=== PATIENT | male | born 1990 | race Caucasian/White ===

== ENCOUNTER 2019-12-09 09:09 | Emergency (ER) | payer BC ==
--- OUTSIDE RECORDS SUMMARY | 2019-12-09 09:12 | XMS REPORT | Summary of Care ---
:1990 Author Organization [facility] Address [address] [place] [address] Care Team Providers Name Role Phone Pcp, Patient Does Not Have A Primary Care Provider +1-000-00 0-0000 Reason for Visit Reason Comments LAB Encounter Details Date Type Department Care Team Description 10/04/2019 Laboratory Only [facility] Family Karina Squires, EQUINE INTERN [address] [place] [id number] Suspected Covid-19 [facility] Echo Lab, Adc Fam Pob I Virus Infection [address] [place] [address] (Primary D x) [place] [address] Allergies Not on Filedocumented as of this encounter (statuses as of 10/04/2019) Medications Not on filedocumented as of this encounter (statuses as of 10/04/2019) Active Problems Not on filedocumented as of this encounter (statuses as of 10/04/2019) Social History Tobacco Use Types Packs/Day Years Used Date Never Assessed Sex Assigned at Date Recorded Not on file Job Start Date Occupation Industry Not on file Not on file Not on file Travel History Travel Start Travel End No recent travel history available. documented as of this encounter Last Filed Vital Signs Not on filedocumented in this encounter Plan of Treatment Name Type Priority Associated Diagnoses Date/Ti me COVID-19 (PCR MOLECULAR LAB Routine Suspected Covid-1 9 Virus 10/04/2019 9:07 AM CDT TESTING) Infection Name Type Priority Associated Diagnoses Order S chedule COVID-19 (PCR MOLECULAR LAB Routine Suspected Covid-1 9 Virus Expected: 10/04/2019, TESTING) Infection Expires: 2020 Health Maintenance Due Date Last Done Comments VARICELLA VACCINES (1 of 2 - 1989 2-dose childhood series) DTaP,Tdap,and Td Vaccines (1 - 1999 Tdap) Depression Screening 2000 INFLUENZA VACCINE (#1) 2019 PNEUMOCOCCAL 0-64 YEARS COMBINED Aged Out No longer eligible based on SERIES patient's age to complete this topic documented as of this encounter Results Not on filedocumented in this encounter Visit Diagnoses Diagnosis Suspected Covid-19 Virus Infection - Stefany vazquez documented in this encounter Additional Health Concerns Infection Onset Date Last Indicated Resolved Time COVID-19 Rule Out 10/04/2019 10/04/2019 documented as of this encounter Insurance Payer Benefit Plan Subscriber ID Effective Dates Phone Address Type / Group BCBS OF [facility] [id number] 2019-Jose A [phone] [address] PPO/POS [place] t 7 [id number] [place] [address] documented as of this encounter
--- OUTSIDE RECORDS SUMMARY | 2019-12-09 09:12 | XMS REPORT | Summary of Care ---
:1990 Author Organization [facility] Address [address] [place] [address] Care Team Providers Name Role Phone Pcp, Patient Does Not Have A Primary Care Provider +1-000-00 0-0000 Reason for Visit Reason Comments Results Encounter Details Date Type Department Care Team Description 10/05/2019 Telephone [facility] Family Medicine Elke Coon PA Results - [address] manzo [facility] [place] [address] [place] [address] [phone] Allergies Not on Filedocumented as of this encounter (statuses as of 10/05/2019) Medications Not on filedocumented as of this encounter (statuses as of 10/05/2019) Active Problems Not on filedocumented as of this encounter (statuses as of 10/05/2019) Social History Tobacco Use Types Packs/Day Years Used Date Never Assessed Sex Assigned at Date Recorded Not on file Job Start Date Occupation Industry Not on file Not on file Not on file Travel History Travel Start Travel End No recent travel history available. documented as of this encounter Last Filed Vital Signs Not on filedocumented in this encounter Plan of Treatment Health Maintenance Due Date Last Done Comments VARICELLA VACCINES (1 of 2 - 1989 2-dose childhood series) DTaP,Tdap,and Td Vaccines (1 - 1999 Tdap) Depression Screening 2000 INFLUENZA VACCINE (#1) 2019 PNEUMOCOCCAL 0-64 YEARS COMBINED Aged Out No longer eligible based on SERIES patient's age to complete this topic documented as of this encounter Results Not on filedocumented in this encounter Additional Health Concerns Infection Onset Date Last Indicated Resolved Time COVID-19 Rule Out 10/04/2019 10/04/2019 10/05/2019 8: 08 AM CDT documented as of this encounter Insurance Payer Benefit Plan Subscriber ID Effective Dates Phone Address Type / Group BCBS OF [facility] [id number] 2019-Jose A [phone] [address] PPO/POS [place] t [id number] [place] [address] documented as of this encounter
--- OUTSIDE RECORDS SUMMARY | 2019-12-09 09:12 | XMS REPORT | Continuity of Care Document ---
:1990 Author Organization [facility] t Address [address] [place] [address] Care Team Providers Name Role Phone Miles Sepulveda MD Attending Clinician Earnest Baltazar Attending Clinician Lab, Fam Pob I Attending Clinician Unavailable Problems This patient has no known problems. Allergies, Adverse Reactions, Alerts This patient has no known allergies or adverse reactions. Medications This patient has no known medications. Procedures This patient has no known procedures. Encounters Start End Encounter Admission Attending Care Care Encounter Source Date/Time Date/Time Type Type Clinicians Facility Department ID 2019-11-10 2019-11-10 Telephone NITESH Sepulveda [id number] 00:00:00 00:00:00 Ann Marie Leblanc [facility] [id number] [facility] [id number] 2019-10-05 2019-10-05 Telephone Gertrudis [facility] [id number] 00:00:00 00:00:00 Elke [facility] [id number] [place] [id number] Professio [phone] nal [address] 2019-10-04 2019-10-04 Laboratory Lab, [facility] [id number] 09:00:29 09:45:18 Only Fam Pob I Health [id number] [place] [id number] Professio [phone] [address]al [address] Results This patient has no known results.
--- OUTSIDE RECORDS SUMMARY | 2019-12-09 09:12 | XMS REPORT | Summary of Care ---
:1990 Author Organization [address] [address] Care Team Providers Name Role Phone Pcp, Patient Does Not Have A Primary Care Provider +1-000-00 0-0000 Reason for Visit Reason Comments Error Encounter Details Date Type Department Care Team Description 11/10/2019 Telephone [facility] Urology- Greg Sepulveda MD Error [address] [place] [address] [place] [address] [place] [address] Allergies Not on Filedocumented as of this encounter (statuses as of 11/10/2019) Medications Not on filedocumented as of this encounter (statuses as of 11/10/2019) Active Problems Not on filedocumented as of this encounter (statuses as of 11/10/2019) Social History Tobacco Use Types Packs/Day Years Used Date Never Assessed Sex Assigned at Date Recorded Not on file documented as of this encounter Last Filed Vital Signs Not on filedocumented in this encounter Plan of Treatment Not on filedocumented as of this encounter Results Not on filedocumented in this encounter Insurance Payer Benefit Plan Subscriber ID Effective Dates Phone Address Type / Group BCBS OF [facility] [id number] 2019-Jose A [phone] [address] PPO/POS [place] t [id number] [place] [address] documented as of this encounter
[2019-12-09 10:09] LABS: Absolute Lymphocytes (CBC) 0.9 K/uL (0.7-4.9); Basophils % 0.4 % (0-1.3); Lymphocytes % 4.5 % (15.3-44.8); MPV 8.5 fL (7.6-11.3)
[2019-12-09 10:28] LABS: Albumin 3.5 g/dL (3.4-5.0); Bilirubin Total 0.5 mg/dL (0.2-1.0); Potassium 3.8 mmol/L (3.5-5.1); Protein, Total 7.6 g/dL (6.4-8.2)
[2019-12-09] MEDS ORDERED: NA CHLORIDE 0.9% 1,000 ML ONE (10:57)
[2019-12-09] MEDS ORDERED: CLINDAMYCIN 900MG/D5W 900 MG/50 ML IVPB IV ONE (10:58)
[2019-12-09 11:51] LABS: Blood Morphology Comment NOT SEEN (NOT SEEN); Platelet Estimate ADEQ
--- NOTE | 2019-12-09 12:44 | RAD REPORT ---
EXAM DESCRIPTION: US - Extremity Venous Uni Ltd - 12/09/2019 12:20 pm CLINICAL HISTORY: PAIN COMPARISON: None. TECHNIQUE: Real-time sonographic evaluation of the left lower extremity deep venous system was perfo rmed. FINDINGS: Normal compressibility, flow augmentation, phasic flow and spontaneous flow are identified in the left lower extremity common femoral, superficial femoral, popliteal and posterior tibial vein s. No intraluminal filling defects seen. IMPRESSION: No DVT in the left lower extremity.
--- NOTE | 2019-12-09 13:14 | EDPHYS ---
Physician Documentation [facility] Name: Bob Blankenship Age: 29 yrs Sex: Male : 1990 Arrival Date: 12/09/2019 Time: 09:12 Bed 5 Private MD: ED Physician Jitendra Hinton HPI: 12/08 09:35 This 29 yrs old Male presents to ER via Wheelchair with complaints of Leg jmm Swelling. 09:35 The patient presents with pain, that is acute. Onset: The symptoms/episode jmm began/occurred today. Modifying factors: The symptoms are alleviated by nothing. the symptoms are aggravated by nothing. Associated signs and symptoms: Pertinent positives: calf tenderness, swelling, warmth, Pertinent negatives nausea, numbness, weakness. The patient has not experienced similar symptoms in the past. This is a 29 year old male with a history of htn that presents to the ED with complaints of left lower leg pain and swelling beginning today. Patient denies fever but states having chills. Patient states having multiple mosquito bites but otherwise denies any injury. Denies chest pain, denies shortness of breath. . Historical: - Allergies: 09:32 No Known Allergies; iw - Home Meds: 09:32 losartan 50 mg oral tab 1 tab once daily [Active]; iw - PMHx: 09:32 Hypertension; iw - PSHx: 09:32 Appendectomy; iw - Immunization history:: Adult Immunizations not up to date. - Social history:: Smoking status: Patient reports the use of cigarette tobacco products, smokes one-half pack cigarettes per day. ROS: 09:35 Cardiovascular: Negative for chest pain, palpitations, and edema, Respiratory: Negative jmm for shortness of breath, cough, wheezing, and pleuritic chest pain, Abdomen/GI: Negative for abdominal pain, nausea, vomiting, diarrhea, and constipation. 09:35 Constitutional: Positive for chills. 09:35 MS/extremity: Positive for pain, swelling. 09:35 All other systems are negative. Exam: 09:35 Constitutional: This is a well developed, well nourished patient who is awake, alert, jmm and in no acute distress. Head/Face: atraumatic. Eyes: EOMI, no conjunctival erythema appreciated ENT: Moist Mucus Membranes Neck: Trachea midline, Supple Chest/axilla: Normal chest wall appearance and motion. Cardiovascular: Regular rate and rhythm. No edema appreciated Respiratory: Normal respirations, no respiratory distress appreciated Abdomen/GI: Non distended, soft Back: Normal ROM 09:35 Musculoskeletal/extremity: FROM appreciated to the left lower leg, compartments are soft, full radial pulse, NVI. 09:35 Skin: erythema and swelling noted to the left lower leg. 09:35 Neuro: Orientation: is normal, Mentation: is normal, Memory: is normal. 09:35 Psych: Behavior/mood is pleasant, cooperative, anxious. Vital Signs: 09:34 Weight 158.76 kg; Height 5 ft. 9 in. (175.26 cm); Pain 7/10; iw 09:51 BP 128 / 82; Pulse 113; Resp 20; Temp 99.9(O); Pulse Ox 95% on R/A; mh5 10:53 Pulse 107; Resp 20; Pulse Ox 96% on R/A; em 11:46 BP 153 / 78; Pulse 110; Resp 18; Temp 99.2(O); Pulse Ox 97% on R/A; mh5 13:00 BP 148 / 81; Pulse 107; Resp 20; Pulse Ox 99% on R/A; em 09:34 Body Mass Index 51.69 (158.76 kg, 175.26 cm) iw MDM: 09:26 Patient medically screened. maynor 13:10 Data reviewed: vital signs, nurses notes. Counseling: I had a detailed discussion with esther the patient and/or guardian regarding: the historical points, exam findings, and any diagnostic results supporting the discharge/admit diagnosis, radiology results, the need for outpatient follow up, to return to the emergency department if symptoms worsen or persist or if there are any questions or concerns that arise at home. ED course: Patient is alert and non toxic in appearance in the ED. Patient declines admission. Will be prescribed oral abx and otherwise given strict return precautions. Patient understood and agrees with the plan of care. . 12/08 09:30 Order name: CBC with Diff; Complete Time: 12:42 [facility] 12/08 09:30 Order name: CMP; Complete Time: 10:33 [facility] 12/08 09:30 Order name: Procalcitonin; Complete Time: 11:09 [facility] 12/08 09:30 Order name: Lactate; Complete Time: 10:33 [facility] 12/08 09:30 Order name: Blood Culture Adult (2) [facility] 12/08 09:30 Order name: Saline Lock; Complete Time: 10:08 [facility] 12/08 09:30 Order name: US Extremity Venous Unilateral Ltd; Complete Time: 12:45 [facility] 12/08 11:51 Order name: Manual Differential; Complete Time: 12:42 [facility] 12/08 13:03 Order name: Lactate Sepsis 2 HR Follow-up; Complete Time: 13:05 EDAZ Administered Medications: 10:50 Drug: Clindamycin 900 mg Route: IVPB; Infused Over: 30 mins; Site: left antecubital; em 11:30 Follow up: Response: No adverse reaction; IV Status: Completed infusion; IV Intake: em 100ml 10:50 Drug: NS 0.9% 1000 ml Route: IV; Rate: 1 bolus; Site: left antecubital; em 12:30 Follow up: IV Status: Completed infusion; IV Intake: 1000ml em Disposition: 12/09 06:04 Co-signature as Attending Physician, Jitendra Hinton MD I agree with the assessment and maynor plan of care. Disposition: 12/09/19 13:13 Discharged to Home. Impression: Cellulitis of the Right Lower Extremity. - Condition is Stable. - Discharge Instructions: Cellulitis, Adult. - Prescriptions for Clindamycin HCl 300 mg Oral Capsule - take 1 capsule by ORAL route every 6 hours for 10 days; 40 capsule. Bactrim DS 800- 160 mg Oral Tablet - take 1 tablet by ORAL route every 12 hours for 10 days; 20 tablet. - Medication Reconciliation Form, Thank You Letter, Antibiotic Education, Prescription Opioid Use, Work release form form. - Follow up: Private Physician; When: 2 - 3 days; Reason: Recheck today's complaints, Continuance of care, Re-evaluation by your physician. Signatures: Dispatcher [employer] Jitendra Nieto MD MD cha Mickail, Joel, PA PA Lalo Krause, JOHN RN Nallely Dickson RN RN iw Corrections: (The following items were deleted from the chart) 12/08 11:51 10:16 CBC Smear Scan ordered. EDAZ EDAZ 12:40 11:38 LACTATE+C.LAB.BRZ ordered. EDAZ EDAZ 13:25 13:13 12/09/2019 13:13 Discharged to Home. Impression: Cellulitis of the Right Lower em Extremity. Condition is Stable. Forms are Medication Reconciliation Form, Thank You Letter, Antibiotic Education, Prescription Opioid Use. Follow up: Private Physician; When: 2 - 3 days; Reason: Recheck today's complaints, Continuance of care, Re-evaluation by your physician. esther
--- NOTE | 2019-12-09 13:14 | ER ---
Nurse's Notes [facility] Name: Bob Blankenship Age: 29 yrs Sex: Male : 1990 Arrival Date: 12/09/2019 Time: 09:12 Bed 5 Private MD: Diagnosis: Cellulitis of the Right Lower Extremity Presentation: 12/08 09:28 Chief complaint: Patient states: swelling, redness, pain to left leg started last iw night. Coronavirus screen: At this time, the client does not indicate any symptoms associated with coronavirus-19. Ebola Screen: Patient negative for fever greater than or equal to 101.5 degrees Fahrenheit, and additional compatible Ebola Virus Disease symptoms Patient denies exposure to infectious person. Patient denies travel to an Ebola-affected area in the 21 days before illness onset. No symptoms or risks identified at this time. Initial Sepsis Screen: Does the patient meet any 2 criteria? No. Patient's initial sepsis screen is negative. Does the patient have a suspected source of infection? No. Patient's initial sepsis screen is negative. Risk Assessment: Do you want to hurt yourself or someone else? Patient reports no desire to harm self or others. Onset of symptoms was December 08, 2019. 09:28 Method Of Arrival: Wheelchair iw 09:28 Acuity: ZHAO 3 iw Historical: - Allergies: 09:32 No Known Allergies; iw - Home Meds: 09:32 losartan 50 mg oral tab 1 tab once daily [Active]; iw - PMHx: 09:32 Hypertension; iw - PSHx: 09:32 Appendectomy; iw - Immunization history:: Adult Immunizations not up to date. - Social history:: Smoking status: Patient reports the use of cigarette tobacco products, smokes one-half pack cigarettes per day. Screenin:57 Abuse screen: Denies threats or abuse. Nutritional screening: No deficits noted. em Tuberculosis screening: No symptoms or risk factors identified. Fall Risk None identified. Assessment: 09:45 General: Appears in no apparent distress. comfortable, Behavior is calm, cooperative, em appropriate for age, Denies fever. Pain: Complains of pain in left calf Pain currently is 7 out of 10 on a pain scale. Neuro: Level of Consciousness is awake, alert, obeys commands, Oriented to person, place, time, situation, Appropriate for age. Cardiovascular: Capillary refill < 3 seconds Patient's skin is warm and dry. Respiratory: Airway is patent Respiratory effort is even, unlabored, Respiratory pattern is regular, symmetrical. GI: Abdomen is round obese. Derm: Skin is intact, is healthy with good turgor, hot and red to touch, mild swelling noted on left calf Skin is. 11:00 Reassessment: Patient appears in no apparent distress at this time. Patient and/or em family updated on plan of care and expected duration. Pain level reassessed. Patient is alert, oriented x 3, equal unlabored respirations, skin warm/dry/pink. 11:40 Reassessment: Patient is alert/active/playful, equal unlabored respirations, skin em warm/dry/pink. pending completion of IV NS bolus before redrawing the lactate. 13:24 Reassessment: Patient appears in no apparent distress at this time. Patient and/or em family updated on plan of care and expected duration. Pain level reassessed. Patient is alert, oriented x 3, equal unlabored respirations, skin warm/dry/pink. Vital Signs: 09:34 Weight 158.76 kg; Height 5 ft. 9 in. (175.26 cm); Pain 7/10; iw 09:51 BP 128 / 82; Pulse 113; Resp 20; Temp 99.9(O); Pulse Ox 95% on R/A; mh5 10:53 Pulse 107; Resp 20; Pulse Ox 96% on R/A; em 11:46 BP 153 / 78; Pulse 110; Resp 18; Temp 99.2(O); Pulse Ox 97% on R/A; mh5 13:00 BP 148 / 81; Pulse 107; Resp 20; Pulse Ox 99% on R/A; em 09:34 Body Mass Index 51.69 (158.76 kg, 175.26 cm) iw ED Course: 09:12 Patient arrived in ED. as 09:12 Martínez Phoenix PA is PHCP. jmm 09:12 Jitendra Hinton MD is Attending Physician. jmm 09:29 Triage completed. iw 09:30 Lalo Christy, RN is Primary Nurse. em 09:32 Arm band placed on. iw 09:52 Patient has correct armband on for positive identification. Bed in low position. Call 5 light in reach. Side rails up X 1. Pulse ox on. NIBP on. 09:57 Initial lab(s) drawn, by me, sent to lab. First set of blood cultures drawn by me. em Inserted saline lock: 20 gauge in left antecubital area, using aseptic technique. Blood collected. 10:26 US Extremity Venous Unilateral Ltd In Process Unspecified. EDMS 10:28 Ultrasound completed. Patient tolerated well. Notified STOCK PREPARER/PA martínez. sg3 13:18 IV discontinued, Pressure dressing applied. 5 13:23 No provider procedures requiring assistance completed. em 13:24 intact, bleeding controlled, No redness/swelling at site. Pressure dressing applied. em Administered Medications: 10:50 Drug: Clindamycin 900 mg Route: IVPB; Infused Over: 30 mins; Site: left antecubital; em 11:30 Follow up: Response: No adverse reaction; IV Status: Completed infusion; IV Intake: em 100ml 10:50 Drug: NS 0.9% 1000 ml Route: IV; Rate: 1 bolus; Site: left antecubital; em 12:30 Follow up: IV Status: Completed infusion; IV Intake: 1000ml em Intake: 11:30 IV: 100ml; Total: 100ml. em 12:30 IV: 1000ml; Total: 1100ml. em Outcome: 13:13 Discharge ordered by MD. [facility] 13:23 Discharged to home ambulatory. em 13:23 Condition: good 13:23 Discharge instructions given to patient, Instructed on discharge instructions, follow up and referral plans. medication usage, Demonstrated understanding of instructions, follow-up care, medications, Prescriptions given X 2. 13:25 Patient left the ED. em Signatures: Dispatcher [employer] EDMS Martínez Phoenix PA PA jmm Munoz, Edgar, RN RN Mary Pink Irene, RN Sandy Vela [facility] Chelsi Hoff sg3
[2019-12-09 13:35] VITALS: TEMP 99.2
[2019-12-09 13:36] VITALS: BP 148/81; O2SAT 99
== END 2019-12-09 13:25 | disposition home or self-care (01) ==
LOC: ER 09:09
DX: L03.116 Cellulitis of left lower limb (principal); I10 Essential (primary) hypertension; F17.210 Nicotine dependence, cigarettes, uncomplicated
CPT/HCPCS: 96365; 96361; 87040 ×2; 85025; 36415; 83605 ×2; 80053; 84145; 93971; 99284; J7030

== ENCOUNTER 2021-07-28 09:30 | Day surgery (SDC) | payer OTHER ==
--- NOTE | 2021-07-24 11:26 | RAD REPORT ---
EXAM DESCRIPTION: RAD - Chest Pa And Lat (2 Views) - 07/24/2021 11:20 am CLINICAL HISTORY: Pre op pending hernia surgery COMPARISON: No comparisons FINDINGS: Lines: None. Lungs: No evidence of edema or pneumonia. Pleural: No significant pleural effusions or pneumothorax. Cardiac: The heart size is within normal limits. Bones: No acute fractures. Other: IMPRESSION: No acute cardiopulmonary disease.
[2021-07-24 11:45] LABS: Absolute Lymphocytes (CBC) 2.1 K/uL (0.7-4.9); Hematocrit 45.7 % (39.6-49.0); Lymphocytes % 18.7 % (15.3-44.8); MPV 8.4 fL (7.6-11.3); RBC Red Blood Cell Count 5.01 M/uL (4.33-5.43)
--- NOTE | 2021-07-24 14:32 | EKG ---
Test Date: 2021-07-24 Test Time: 10:01:17 [employer] Machine: MICKY MEASUREMENT RESULTS: Intervals: Rate: 89 NJ: 160 QRSD: 86 QT: 348 QTc: 423 [place]: P: 64 NJ: 160 QRS: 74 T: 75 INTERPRETIVE STATEMENTS: Normal sinus rhythm Normal ECG No previous ECG available for comparison Electronically Signed On 07-24-21 14:32:06 CDT by Rocky Wharton
[2021-07-28] MEDS ORDERED: Ringers Lactate 1,000 ML IV ONE (09:39)
[2021-07-28] MEDS ORDERED: BUPIVACAINE 0.25% PF 10 ML VIAL ONE (09:52)
[2021-07-28] MEDS ORDERED: ROCURONIUM 50 MG/5 ML VIAL IV ONE (09:57)
[2021-07-28] MEDS ORDERED: ONDANSETRON 4 MG/2 ML VIAL ONE ×2 (09:57→12:02)
[2021-07-28] MEDS ORDERED: FENTANYL CITR 100 MCG/2 ML ONE (09:57)
[2021-07-28] MEDS ORDERED: MIDAZOLAM HCL 2 MG/2 ML INJ ONE (09:57)
[2021-07-28] MEDS ORDERED: propofoL 200 MG/20 ML VIAL IV ONE (09:57)
[2021-07-28] MEDS ORDERED: LIDOCAINE 2% MPF 5 ML VIAL ONE (09:57)
[2021-07-28] MEDS ORDERED: CEFAZOLIN/SWI 2gm 2 GM/20 ML SYR ONE (10:03)
[2021-07-28 10:14] LABS: Potassium 4.1 mmol/L (3.5-5.1)
[2021-07-28] MEDS ORDERED: GLYCOPYRROLATE 0.2 MG/ML SYR ONE (11:30)
--- NOTE | 2021-07-28 11:31 | P.OP ---
Preoperative diagnosis: Ventral Abdominal Reducible Hernia Postoperative diagnosis: Ventral Abdominal Reducible Hernia Primary procedure: Laparoscopic Ventral Hernia Repair with mesh Anesthesia: GETA + Local Estimated blood loss: <5cc Specimen: Pre-peritoneal adipose Findings: reducible ventral hernia defect, no contents Complications: None Implants: Bard Ventralite ST mech with echo 15cm round, sorbafix Transferred to: Recovery Room Condition: Good
[2021-07-28] MEDS ORDERED: dexAMETHasone 10 MG/ML VIAL ONE (11:36)
[2021-07-28] MEDS ORDERED: NEOSTIGMINE 1 MG/ML -10 ML VIAL ONE (11:36)
[2021-07-28] MEDS ORDERED: KETOROLAC 30 MG/ML INJ ONE (11:36)
[2021-07-28] MEDS: HYDROMORPHONE HCL 1 MG/ML INJ ONE ×4 (12:00→12:25)
[2021-07-28] MEDS ORDERED: HYDROCODONE/APAP 10/325 TAB ONE (13:12)
[2021-07-28 13:54] VITALS: BP 134/96; TEMP 97.8; O2SAT 95
--- NOTE | 2021-07-28 23:31 | OP ---
Date of Procedure: 07/28/2021 Surgeon: Ye Hernandez MD, Brief History Of Present Illness: The patient is a 31-year-old gentleman who presented to the clinic with a reducible ventral abdominal midline hernia. He had been seen in clinic with a significant bu lge in his midline. He had significant improvement of his symptoms after gentle palpation reduction in the office, but CT scan was performed, which did not display significant changes in the abdominal wall, but clinical exam necessitated a surgical intervention as there was significant bulging not con sistent with diastasis, but rather with a reducible ventral abdominal wall defect. Preoperative Diagnosis: Ventral abdominal reducible hernia. Postoperative Diagnosis: Ventral abdominal reducible hernia. Procedure Performed: Laparoscopic ventral hernia repair with mesh. Anesthesia: General endotracheal plus local with 0.25% Marcaine. Estimated Blood Loss: Less than 5 cc. Specimen: Preperitoneal adipose tissue. Findings: Reducible ventral hernia defect. No contents were appreciated. Complications: None. Implants: Bard Ventralight ST mesh with Echo positioning system 15.2 cm round and SorbaFix absorbabl e tacking system, 60 tacks used. Disposition: The patient was transferred to recovery room in good condition. Procedure In Detail: After informed consent was obtained, the patient was brought to the operating r oom and prepped and draped in the usual sterile fashion. After adequate anesthesia was achieved, the area of the left upper quadrant was anesthetized with 0.25% Marcaine and sharply incised. A 5 mm tr ocar was placed under direct visualization without any complication. Insufflation was obtained to 15 mmHg. At this time, no injury to vital structures upon entry into the abdomen. Additional trocar w as placed in the left lower quadrant. This area was similarly anesthetized and sharply incised. A 1 2-mm trocar was placed under direct visualization without complication. Inspection of the abdominal wall noted a defect in the anterior abdominal wall, which is only evident on pneumoperitoneum. When the pneumoperitoneum was reduced, the defect came together, but it was visualized, did not have herni a contents at this point though. It was a small defect approximately 1.5 cm and there was a small di astasis extending superiorly. At this point, I swept free the preperitoneal fat using LigaSure devic e and removed this to allow for appropriate landing zone from the mesh at this point in the supraumbi lical position. I then removed the preperitoneal fat, placed in EndoCatch bag, removed from the left lower quadrant trocar, and sent off for pathologic examination. I then sized the mesh, found a 15.[address] mesh with Echo positioning system to be adequate. It was placed, positioned centrally over the supraumbilical ventral abdominal wall hernia. After it was positioned, the ballo on was deployed and the single crown was secured to the anterior abdominal wall using SorbaFix absorb able fixation tacks. At this point, the balloon deployment system was removed and found to be intact on the back table and a second crown of SorbaFix with all fixation tacks were placed to the anterior abdominal wall with good apposition of the mesh to the anterior abdominal wall after 60 tacks were p laced. The patient was positioned back in neutral position under desufflation. The area was inspect ed and under insufflation was inspected, found to be in good apposition. At this point, I closed the 12 mm laparoscopic port in the left lower quadrant using a Lamine-Jocelin suture passer with 0 Vicr yl in interrupted fashion with good approximation of the tissues. The abdomen was completely desuffl ated under direct vision without evidence of complication. Remaining trocars were removed. All skin incisions were then copiously irrigated and closed with 4-0 Monocryl in a running fashion. Dermabon d was placed over top. The patient tolerated the procedure well without evidence of complication and transferred to PACU in good condition. All counts were correct at the end of the case. GABRIEL/BRANDON Voice ID: [id number] Report ID: [id number]
== END 2021-07-28 13:42 | disposition home or self-care (01) ==
LOC: OR 09:30
PROVIDERS: ATTEND Surgery
PROC: 0WUF4JZ Supplement Abdominal Wall with Synthetic Substitute, Percutaneous Endoscopic Approach (ICD-10-PCS; principal; 2021-07-28 11:30)
DX: K43.9 Ventral hernia without obstruction or gangrene (principal); Z20.822 Contact with and (suspected) exposure to COVID-19
CPT/HCPCS: 93005; 85025; 80048; 36415 ×2; 88302; 71046; 49652; U0003; J2704; J2710; J2250; J3010; J1100; J1170 ×2; J0690; J7120; J2405 ×2

== ENCOUNTER 2024-04-04 16:56 | Emergency (ER) | payer OTHER ==
--- OUTSIDE RECORDS SUMMARY | 2024-04-04 16:59 | XMS REPORT | Continuity of Care Document ---
Author Name Unknown Address [address] [facility]. [address] [id number] [facility] Address [address] [facility] [address] [place] [address] Care Team Providers [employer] Accounts Manager Name Role Phone PCP, PATIENT DOES NOT HAVE A Primary Care Physic neeru Unavailable BOB RUSSO Attending Clinician Unavailable BOB RUSSO Attending Clinician Unavailable Room, [facility] Attending Clinician Unavailable Ortega Nelson MD Attending Clinician [phone] ORTEGA NELSON Attending Clinician Unavailable SYLVIA Attending Clinician Unavailable Lab, [facility] I Attending Clinician Unavailab Sahara Mckeon Attending Clinician [phone] Ann Marie Sepulveda MD Attending Clinician [phone] Elke Baltazar Attending Clinician [phone] Hien Rosen Attending Clinician [phone] HIEN BERMAN Attending Clinician Unavailable Bob Russo MD Admitting Clinician [phone] BOB RUSSO Admitting Clinician Unavailable SYLVIA Admitting Clinician Unavailable Payers Payer Name Policy Type Policy Number Effective Date Expirati on Date Source [facility] [id number] 2023 00:00:00 [place] [id number] 2019 00:00:00 Allergies, Adverse Reactions, Alerts Allergy Name Allergy Type Status Severity Reaction(s) Onset Date Inactive Date Treating Clinician Comments Source NO KNOWN ALLERGIE S Drug Class Active [facility] Social History Social Habit Start Date Stop Date Quantity Comments Source Exposure to SARS-CoV-2 (event) Yes [facility] Sexual orientation [facility] History of Social function 2023-08-22 00:00:00 2023-08-22 00:00:00 [facility] Sex assigned at 1990 00:00:00 1990 00:00:00 [facility] Smoking Status Start Date Stop Date Source Tobacco smoking consumption unknown [facility] Medications Ordered Medication Name Filled Medication Name Start Date Stop Date Current Medication? Ordering Clinician Indication Dosage Frequency Signature (SIG) Comments Components Source sulfamethox azole-trime thoprim (BACTRIM DS) 800-160 mg per tablet 08-24 00:00: 00 08-30 04:59 :00 No [id number] 1{tbl} Take 1 tablet by mouth in the morning and 1 tablet in the evening. Do all this for 5 days. [facility] sulfamethox azole-trime thoprim (BACTRIM DS) 800-160 mg per tablet 08-21 00:00: 00 08-24 18:08 :55 No [id number] 1{tbl} Take 1 tablet by mouth in the morning and 1 tablet in the evening. Do all this for 5 days. [facility] Vital Signs Vital Name Observation Time Observation Value Comments S yovanny Systolic blood pressure 2023-08-25 17:36:00 129 mm[Hg] [facility] Diastolic blood pressure 2023-08-25 17:36:00 80 mm[Hg] [facility] Heart rate 2023-08-25 17:36:00 87 /min [facility] Body temperature 2023-08-25 17:36:00 36.11 Candy [facility] Respiratory rate 2023-08-25 17:36:00 14 /min [facility] Body weight 2023-08-25 17:36:00 130.636 kg [facility] Oxygen saturation in Arterial blood by Pulse oximetry 2023-08-25 17:36:00 97 /min [facility] Systolic blood pressure 2023-08-22 19:20:00 134 mm[Hg] [facility] Diastolic blood pressure 2023-08-22 19:20:00 91 mm[Hg] [facility] Heart rate 2023-08-22 19:20:00 102 /min [facility] Body temperature 2023-08-22 19:20:00 36.72 Candy [facility] Respiratory rate 2023-08-22 19:20:00 22 /min [facility] Body weight 2023-08-22 19:20:00 129.729 kg [facility] Oxygen saturation in Arterial blood by Pulse oximetry 2023-08-22 19:20:00 98 /min [facility] Procedures Procedure Date / Time Performed Performing Clinician Source REFERRAL OCCUPATIONAL THERAPY 2023-08-22 00:00:00 Toño Johnson [facility] Encounters Start Date/Time End Date/Time Encounter Type Admission Type Attending Clinicians Care Facility Care Department Encounter ID Source 2023-08-25 12:12:11 2023-08-25 23:59:00 Outpatient BOB DICKSON STEVEN [facility] [id number] [facility] 2023-08-25 12:12:11 2023-08-25 23:59:00 Hospital Encounter [facility] [id number] 350.1.13.10 4.2.7.2.686 [id number] [facility] 2023-08-22 14:07:34 2023-08-22 23:59:00 Hospital Encounter [facility] [id number] 350.1.13.10 4.2.7.2.686 [id number] [facility] 2023-08-22 10:39:00 2023-08-22 14:06:00 Outpatient BOB DICSKON [facility] [id number] [facility] 2023-08-22 10:39:00 2023-08-22 14:06:00 Hospital Encounter [facility] [id number] 350.1.13.10 4.2.7.2.686 [id number] [facility] 2023-08-22 12:00:00 2023-08-22 13:00:00 Ancillary Visit Room, Lissa-Occup Therapy Tub NelsonAlvaroOrtega Earnest [facility] 1..840.114 350.1.13.10 4.2.7.2.686 [id number] [facility] 2023-08-22 12:00:00 2023-08-22 12:00:00 Outpatient R ORTEGA NELSON [facility] [id number] [facility] 2020-03-27 11:26:00 2020-03-27 11:26:00 Outpatient [facility] [id number] 2020-03-18 17:47:47 2020-03-18 18:07:47 Laboratory Only Lab, Adc Fam Sahara Burnett [facility] 1..840.114 350.1.13.10 4.2.7.2.686 [id number] [facility] 2020-03-18 17:40:00 2020-03-18 17:40:00 Outpatient R [facility] [id number] [facility] 2019-11-10 00:00:00 2019-11-10 00:00:00 Telephone Ann Marie Sepulveda [facility] 1.840.114 350.1.13.10 4.2.7.2.686 [id number] [facility] 2019-11-10 00:00:00 2019-11-10 00:00:00 Telephone Ann Marie Sepulveda [facility] 1.840.114 350.1.13.10 4.2.7.2.686 [id number] 2019-10-05 00:00:00 2019-10-05 00:00:00 Telephone Elke Caba [facility] 1.840.114 350.1.13.10 4.2.7.2.686 [id number] [facility] 2019-10-05 00:00:00 2019-10-05 00:00:00 Telephone Elke Caba [facility] [id number] 350.1.13.10 4.2.7.2.686 [id number] 2019-10-04 09:00:29 2019-10-04 09:45:18 Laboratory Only Lab, [facility] Fam Pob Hien Arreola [facility] 1.2840.114 350.1.13.10 4.2.7.2.686 [id number] [facility] 2019-10-04 09:00:29 2019-10-04 09:45:18 Laboratory Only Lab, [facility] Fam Pob Beverly [facility] 1.20.114 350.1.13.10 4.2.7.2.686 [id number] 2019-10-04 08:40:00 2019-10-04 08:40:00 Outpatient R HIEN BERMAN [facility] [id number] [facility] Results Test Description Test Time Test Comments Results Resul t Comments Source CONSULT/REFERRAL OCCUPATIONAL THERAPY 2023-08-22 00:00:00 Consult received and chart reviewed via Tangled. ?Please refer to progress note for details. Mari [phone] [facility]. [facility]
[2024-04-04] MEDS ORDERED: FLUORESCEIN SODIUM 1 MG/WRAP ONE (17:09)
[2024-04-04] MEDS ORDERED: TETRACAINE HCL 0.5% 4ML OPTH ONE ×2 (17:09→19:03)
[2024-04-04] MEDS ORDERED: Ringers Lactate 1,000 ML IV ONE (19:03)
--- NOTE | 2024-04-04 19:33 | EDPHYS ---
Physician Documentation [facility] Name: Bob Blankenship Age: 34 yrs Sex: Male : 1990 Arrival Date: 04/04/2024 Time: 16:56 Bed 3 Private MD: ED Physician Jitendra Hinton HPI: 04/04 17:20 This 34 yrs old Male presents to ER via Ambulatory with complaints of Eye Problem. cp 17:20 The patient is experiencing foreign body sensation, pain, redness, to the left eye, cp caused by an unknown mechanism. Onset: The symptoms/episode began/occurred this morning. Duration: the symptoms are continuous. Associated signs and symptoms: Pertinent negatives: fever, colored eye drainage. Patient does not utilize any form of vision correction. Severity of symptoms: in the emergency department the symptoms are unchanged despite home interventions. Historical: - Allergies: 17:01 No Known Allergies; aa5 - Home Meds: 17:01 losartan 50 mg Oral tab 1 tab once daily [Active]; aa5 - PMHx: 17:01 Hypertension; aa5 - Immunization history:: Adult Immunizations unknown. - Infectious Disease History:: Denies. - Social history:: Smoking status: Patient reports the use of cigarette tobacco products. ROS: 17:25 Eyes: Positive for foreign body sensation, pain, redness, of the left eye, Negative for cp vision loss, 17:25 Constitutional: Negative for body aches, chills, fever, cp 17:25 ENT: Negative for drainage from ear(s), ear pain, sore throat, difficulty swallowing, difficulty handling secretions, 17:25 Respiratory: Negative for cough, shortness of breath, wheezing, 17:25 Abdomen/GI: Negative for abdominal pain, vomiting, diarrhea, constipation, 17:25 Skin: Negative for rash, 17:25 All other systems are negative, Exam: 17:30 Constitutional: The patient appears in no acute distress, alert, awake, non-toxic, well cp developed, well nourished, obese, uncomfortable, 17:30 Head/Face: Normocephalic, atraumatic. cp 17:30 Eyes: Periorbital structures: appear normal, Pupils: equal, round, and reactive to light and accomodation, Extraocular movements: intact throughout, Conjunctiva: injected, in the left eye, Corneas: abrasion, that is small, on the left, extending from 3 to 5 o'clock position, foreign body, is not appreciated, a fluorescein strip employed to appreciate the findings, Anterior chamber: normal, Lids and lashes: appear normal, on the left, 17:30 ENT: External ear(s): are unremarkable, Nose: is normal, Mouth: Lips: moist, Oral mucosa: moist, Posterior pharynx: Airway: no evidence of obstruction, patent, 17:30 Chest/axilla: Inspection: normal, 17:30 Cardiovascular: Rate: normal, Rhythm: regular, 17:30 Respiratory: the patient does not display signs of respiratory distress, Respirations: normal, no use of accessory muscles, no retractions, Vital Signs: 17:02 BP 143 / 89; Pulse 90; Resp 18 S; Temp 98.3(O); Pulse Ox 100% on R/A; Weight 145.15 kg aa5 (R); Height 5 ft. 9 in. (R); 19:12 BP 132 / 82; Pulse 79; Resp 17; Temp 98.3; Pulse Ox 96% ; Pain 2/10; bm8 19:58 BP 131 / 82; Pulse 78; Resp 18; Temp 98.3; Pulse Ox 100% ; Pain 5/10; bm8 17:02 Body Mass Index 47.26 (145.15 kg, 175.26 cm) aa5 19:12 Pain Scale: Adult bm8 19:58 Pain Scale: Adult bm8 [place] Coma Score: 19:12 Eye Response: spontaneous(4). Motor Response: obeys commands(6). Verbal Response: bm8 oriented(5). Total: 15. 19:58 Eye Response: spontaneous(4). Motor Response: obeys commands(6). Verbal Response: bm8 oriented(5). Total: 15. MDM: 17:03 Medical Screening Exam initiated cp 18:00 Differential diagnosis: Corneal abrasion of left eye. Corneal ulcer of left eye. cp Foreign body in left eye. Chemical conjunctivitis in left eye. Infectious conjunctivitis in left eye. 19:33 Data reviewed: vital signs, nurses notes, and as a result, I will discharge patient. 19:33 I considered the following discharge prescriptions or medication management in the emergency department Medications were administered in the Emergency Department. See MAR. 19:33 Counseling: I had a detailed discussion with the patient and/or guardian regarding the cp historical points, exam findings, and any diagnostic results supporting the discharge/admit diagnosis, the need for outpatient follow up, an opthalmologist, to return to the emergency department if symptoms worsen or persist or if there are any questions or concerns that arise at home. 19:33 Care significantly affected by the following chronic conditions: Hypertension, Obesity. cp Response to treatment: the patient's symptoms have mildly improved after treatment, and as a result, I will discharge patient. 04/04 17:16 Order name: Eye Tray; Complete Time: 17:17 ph 04/04 17:16 Order name: Fluoresene Opth strip; Complete Time: 17:17 ph Administered Medications: 18:10 Drug: Tetracaine Ophthalmic Drops 0.5 % 1 drops Ophthalmic once Route: Ophthalmic; ph Site: left eye; 19:59 Follow up: Response: No adverse reaction bm8 19:13 Drug: Ringers - Lactated Ringers Solution IV 1000 ml IV at bolus bolus; to be given as bm8 eye irrigation {Note: left eye via angelica lens.} Route: IV; Rate: bolus; Site: Other; 19:59 Follow up: Response: No adverse reaction; IV Status: Completed infusion; IV Intake: bm8 1000ml 19:58 Drug: Gentamicin Ophthalmic Drops 0.3 % 1 drops Ophthalmic once; 1 drop in left eye dd2 every 4 hrs while awake for 5 days Route: Ophthalmic; Site: left eye; 19:59 Follow up: Response: No adverse reaction bm8 19:58 Drug: Ibuprofen PO 800 mg PO once Route: PO; dd2 19:59 Follow up: Response: No adverse reaction bm8 19:58 Drug: Hydrocodone-Acetaminophen PO (7.5 mg-325 mg) 1 tabs PO once; RASS on ADMIN: dd2 Combtv4, Very Agttd3, Agttd2, Rstlss1, AlertClm0, Drwsy-1, Lt Sdtn-2, Mod Sdtn-3, Dp Sdtn-4, UnArsble-5 Route: PO; 19:59 Follow up: Response: No adverse reaction bm8 Disposition: 04/05 17:09 Chart complete. cp Disposition Summary: 04/04/24 19:33 Discharge Ordered Notes: Location: Home cp Problem: new cp Symptoms: have improved cp Condition: Stable cp Diagnosis - Injury of conjunctiva and corneal abrasion without foreign body, left eye cp Followup: cp - With: Rhonda Torres MD - When: 1 - 2 days - Reason: Recheck today's complaints Discharge Instructions: - Discharge Summary Sheet cp - Corneal Abrasion cp Forms: - Medication Reconciliation Form cp - Antibiotic Education cp - Prescription Opioid Use cp - Patient Portal Instructions cp - Leadership Thank You Letter cp - Work release form bm8 Prescriptions: - Anaprox DS 550 mg Oral Tablet - take 1 tablet ORAL route every 12 hours As needed; 20 tablet; Refills: 0, cp Product Selection Permitted - Gentamicin 0.3 % Ophthalmic drops - instill 1 drop OPHTHALMIC route every 4 hours for 5 days; 1 unit; Refills: 0, cp Product Selection Permitted Addendum: 04/11/2024 07:20 Co-signature as Attending Physician, Jitendra Hinton MD I agree with the assessment and c grijalva plan of care. Signatures: Jitendra Hinton MD MD cha Calderon, Audri, RN RN aa5 Melina Valdovinos, RN RN iJtendra Mason, PA PA Louie Cohen, RN RN bm8 ALETHA BAUTISTA, RN RN dd2
--- NOTE | 2024-04-04 19:33 | ER ---
Nurse's Notes [facility] Name: Bob Blankenship Age: 34 yrs Sex: Male : 1990 Arrival Date: 04/04/2024 Time: 16:56 Bed 3 Private MD: Diagnosis: Injury of conjunctiva and corneal abrasion without foreign body, left eye Presentation: 04/04 17:02 Chief complaint: Patient states: left eye irritation since this morning and now "feels aa5 like there is something in my eye". Coronavirus screen: At this time, the client does not indicate any symptoms associated with coronavirus-19. Ebola Screen: Patient denies travel to an Ebola-affected area in the 21 days before illness onset. Initial Sepsis Screen: Does the patient meet any 2 criteria? No. Patient's initial sepsis screen is negative. Does the patient have a suspected source of infection? No. Patient's initial sepsis screen is negative. Risk Assessment: Do you want to hurt yourself or someone else? Patient reports no desire to harm self or others. Onset of symptoms was April 04, 2024. 17:02 Acuity: ZHAO 4 aa5 17:02 Method Of Arrival: Ambulatory aa5 Historical: - Allergies: 17:01 No Known Allergies; aa5 - Home Meds: 17:01 losartan 50 mg Oral tab 1 tab once daily [Active]; aa5 - PMHx: 17:01 Hypertension; aa5 - Immunization history:: Adult Immunizations unknown. - Infectious Disease History:: Denies. - Social history:: Smoking status: Patient reports the use of cigarette tobacco products. Screenin:18 [facility] ED Fall Risk Assessment (Adult) History of falling in the last 3 months, ph including since admission No falls in past 3 months (0 pts) Confusion or Disorientation No (0 pts) Intoxicated or Sedated No (0 pts) Impaired Gait No (0 pts) Mobility Assist Device Used Yes (1 pt) Altered Elimination No (0 pt) Score/Fall Risk Level 0 - 2 = Low Risk Oriented to surroundings, Maintained a safe environment, Hourly rounding (assess needs \\T\\ fall precautionary measures) done. Abuse screen: Denies threats or abuse. Denies injuries from another. Nutritional screening: No deficits noted. Tuberculosis screening: No symptoms or risk factors identified. Assessment: 17:17 General: Appears in no apparent distress. uncomfortable, Behavior is calm, cooperative. ph Pain: Complains of pain in left eye. Neuro: Level of Consciousness is awake, alert, obeys commands, Oriented to person, place, time, situation. Cardiovascular: Capillary refill < 3 seconds in bilateral fingers Patient's skin is warm and dry. Respiratory: Airway is patent Respiratory effort is even, unlabored. EENT: Sclera/Cornea are reddened in left eye. Derm: Skin is pink, warm \\T\\ dry. 19:12 Reassessment: Patient appears in no apparent distress at this time. Patient and/or bm8 family updated on plan of care and expected duration. Pain level reassessed. Patient is alert, oriented x 3, equal unlabored respirations, skin warm/dry/pink. General: Appears in no apparent distress. comfortable, Behavior is calm, cooperative, appropriate for age. Pain: Complains of pain in left eye Pain currently is 2 out of 10 on a pain scale. Neuro: No deficits noted. Level of Consciousness is awake, alert, obeys commands, Oriented to person, place, time, situation. EENT: Sclera/Cornea are reddened in iris of left eye w/ abrasion noted on iris of left eye. 19:14 Reassessment: placed angelica lens in left eye attached to LR. bm8 19:43 Reassessment: pt waiting for entire flush of LR 1L for discharge. bm8 19:58 Reassessment: Patient appears in no apparent distress at this time. Patient and/or bm8 family updated on plan of care and expected duration. Pain level reassessed. Patient is alert, oriented x 3, equal unlabored respirations, skin warm/dry/pink. Vital Signs: 17:02 BP 143 / 89; Pulse 90; Resp 18 S; Temp 98.3(O); Pulse Ox 100% on R/A; Weight 145.15 kg aa5 (R); Height 5 ft. 9 in. (R); 19:12 BP 132 / 82; Pulse 79; Resp 17; Temp 98.3; Pulse Ox 96% ; Pain 2/10; bm8 19:58 BP 131 / 82; Pulse 78; Resp 18; Temp 98.3; Pulse Ox 100% ; Pain 5/10; bm8 17:02 Body Mass Index 47.26 (145.15 kg, 175.26 cm) aa5 19:12 Pain Scale: Adult bm8 19:58 Pain Scale: Adult bm8 [place] Coma Score: 19:12 Eye Response: spontaneous(4). Motor Response: obeys commands(6). Verbal Response: bm8 oriented(5). Total: 15. 19:58 Eye Response: spontaneous(4). Motor Response: obeys commands(6). Verbal Response: bm8 oriented(5). Total: 15. ED Course: 17:00 Patient arrived in ED. al6 17:01 Arm band placed on. aa5 17:02 Jitendra Sharp PA is PHCP. cp 17:03 Jitendra Hinton MD is Attending Physician. cp 17:03 Triage completed. aa5 17:10 Melina Valdovinos, JOHN is Primary Nurse. ph 17:18 Patient has correct armband on for positive identification. Bed in low position. Call ph light in reach. Door closed. Noise minimized. 19:12 Client placed on continuous cardiac and pulse oximetry monitoring. NIBP monitoring bm8 applied. Pulse ox on. NIBP on. 19:12 No provider procedures requiring assistance completed. Patient maintains SpO2 bm8 saturation greater than 95% on room air. 19:33 Rhonda Torres MD is Referral Physician. cp 19:58 Provided Education on: post er care, follow up with eye doctor. bm8 19:58 Patient did not have IV access during this emergency room visit. bm8 Administered Medications: 18:10 Drug: Tetracaine Ophthalmic Drops 0.5 % 1 drops Ophthalmic once Route: Ophthalmic; ph Site: left eye; 19:59 Follow up: Response: No adverse reaction bm8 19:13 Drug: Ringers - Lactated Ringers Solution IV 1000 ml IV at bolus bolus; to be given as bm8 eye irrigation {Note: left eye via angelica lens.} Route: IV; Rate: bolus; Site: Other; 19:59 Follow up: Response: No adverse reaction; IV Status: Completed infusion; IV Intake: bm8 1000ml 19:58 Drug: Gentamicin Ophthalmic Drops 0.3 % 1 drops Ophthalmic once; 1 drop in left eye dd2 every 4 hrs while awake for 5 days Route: Ophthalmic; Site: left eye; 19:59 Follow up: Response: No adverse reaction bm8 19:58 Drug: Ibuprofen PO 800 mg PO once Route: PO; dd2 19:59 Follow up: Response: No adverse reaction bm8 19:58 Drug: Hydrocodone-Acetaminophen PO (7.5 mg-325 mg) 1 tabs PO once; RASS on ADMIN: dd2 Combtv4, Very Agttd3, Agttd2, Rstlss1, AlertClm0, Drwsy-1, Lt Sdtn-2, Mod Sdtn-3, Dp Sdtn-4, UnArsble-5 Route: PO; 19:59 Follow up: Response: No adverse reaction bm8 Medication: 17:18 VIS not applicable for this client. ph Intake: 19:59 IV: 1000ml; Total: 1000ml. bm8 Outcome: 19:33 Discharge ordered by MD. cp 19:58 Discharged to home ambulatory, bm8 19:58 Condition: stable 19:58 Discharge instructions given to patient, Instructed on discharge instructions, follow up and referral plans. Demonstrated understanding of instructions, follow-up care, Prescriptions given X 3, 20:02 Patient left the ED. bm8 Signatures: Juana Fairchild, RN RN aa5 Melina Valdovinos, RN RN ph Jitendra Sharp, PADMA PA Louie Cohen, RN RN bm8 ALETHA BAUTISTA RN RN dd2 July Desouza6
[2024-04-04] MEDS ORDERED: IBUPROFEN 400 MG TAB ONE (19:48)
[2024-04-04] MEDS ORDERED: GENTAMICIN 0.3% OPTH DROP 5ML ONE (19:48)
[2024-04-04] MEDS ORDERED: HYDROCODONE/APAP 7.5/325 MG TAB ONE (19:48)
[2024-04-06 02:27] VITALS: BP 131/82; TEMP 98.3; O2SAT 100
== END 2024-04-04 20:02 | disposition home or self-care (01) ==
LOC: ER 16:56
DX: S05.02XA Injury of conjunctiva and corneal abrasion without foreign body, left eye, initial encounter (principal); I10 Essential (primary) hypertension; F17.210 Nicotine dependence, cigarettes, uncomplicated; X58.XXXA Exposure to other specified factors, initial encounter
CPT/HCPCS: 96365; 99284; J7120